=== PATIENT | male | born 1970 | race Caucasian/White ===

== ENCOUNTER 2017-04-12 09:50 | Emergency (ER) | payer OTHER ==
[~2017-04-12] VITALS: Ht 175.3 cm; Wt 111.4 kg
[2017-04-12 11:08] LABS: APPEARANCE CLEAR ((CLEAR)); BILIRUBIN NEGATIVE; BLOOD NEGATIVE; COLOR YELLOW ((YELLOW)); GLUCOSE (STRIP) NEGATIVE; KETONES NEGATIVE; LEUKOCYTES NEGATIVE; NITRITE NEGATIVE; PROTEIN (STRIP) NEGATIVE; SPECIFIC GRAVITY 1.024 (1.000-1.030); UCUL ADDED? NO; UROBILINOGEN 0.2 MG/DL (0.2-1.0)
[2017-04-12 11:30] LABS: HEMATOCRIT 46.2 % (38.0-50.0); HEMOGLOBIN 16.4 G/DL (12.5-16.6); MCH 31.3 PG (29.0-34.0); MCHC 35.5 G/DL (30.0-36.0); MCV 88.2 FL (86-99); PLATELET COUNT 247 K/uL (156-360); RBC DIS.WIDTH-CV 12.1 % (11.8-14.6); RBC DIS.WIDTH-SD 39.8 % (39-53); RED BLOOD COUNT 5.24 M/uL (4.00-5.50); WHITE BLOOD COUNT 7.7 K/uL (4.1-10.2)
[2017-04-12 11:43] LABS: CHLORIDE 104 mEq/L (99-109); POTASSIUM 4.1 mEq/L (3.7-5.4); SODIUM 139 mEq/L (136-147)
[2017-04-12 11:45] LABS: GLUCOSE 84 mg/dL (70-99)
[2017-04-12 11:49] LABS: CREATININE 0.8 mg/dL (0.6-1.3); GFR ESTIMATE (CALCULATED) > 59 mL/min/ (58.99-99999)
[2017-04-12 11:50] LABS: UREA NITROGEN (BUN) 15 mg/dL (9-23)
[2017-04-12] MEDS ORDERED: FLONASE16 G1 BOTH NARES (13:52)
[2017-04-12] MEDS ORDERED: TESSALON PERLE100 MG PO (13:52)
[2017-04-12] MEDS ORDERED: MUCINEX D ER T1 EACH PO (13:52)
[2017-04-12] MEDS ORDERED: ZITHROMAX250 MG PO (13:52)
[2017-04-12 14:20] VITALS: BP 114/88
== END 2017-04-12 14:21 | disposition home or self-care (01) ==
LOC: EME 09:50
DX: J18.0 Bronchopneumonia, unspecified organism (principal); J32.9 Chronic sinusitis, unspecified; M06.9 Rheumatoid arthritis, unspecified; Z96.649 Presence of unspecified artificial hip joint
CPT/HCPCS: 71046; 80048; 81003; 85027; 99281; 99283